=== PATIENT | female | born 1970 | race African-American/Black ===

== ENCOUNTER 2019-08-06 11:25 | Emergency (ER) | payer OTHER ==
[~2019-08-06] VITALS: Ht 167.6 cm; Wt 99.8 kg
[~2019-08-06 11:25] MED LIST: ESKALITH300 MG PO; SEROQUEL 100 M100 M1 PO; WELLBUTRIN SR150 MG PO
[2019-08-06 11:28] VITALS: BP 161/113
[2019-08-06] MEDS ORDERED: PREDNISONE 20 M20 MG PO (11:47)
[2019-08-06] MEDS ORDERED: ZYRTEC10 MG PO (11:47)
[2019-08-06] MEDS ORDERED: MUPIROCIN15 GM TOP (11:47)
== END 2019-08-06 12:08 | disposition home or self-care (01) ==
LOC: ER 11:25
DX: S40.262A Insect bite (nonvenomous) of left shoulder, initial encounter (principal); S40.261A Insect bite (nonvenomous) of right shoulder, initial encounter; F31.9 Bipolar disorder, unspecified; W57.XXXA Bitten or stung by nonvenomous insect and other nonvenomous arthropods, initial encounter; Y93.89 Activity, other specified; Y92.89 Other specified places as the place of occurrence of the external cause; Y99.8 Other external cause status